=== PATIENT | male | born 1960 | race Hispanic/Latino ===

== ENCOUNTER 2017-06-23 06:50 | Day surgery (SDC) | payer BC ==
[2017-06-15 10:49] VITALS: BMI 32.5
[2017-06-23] MEDS ORDERED: Propofol 10 mg/ml Inj (20 ML) ONE (08:02)
[2017-06-23] MEDS ORDERED: Lidocaine 2% Inj (20ml) ONE (08:02)
[2017-06-23] MEDS ORDERED: Simethicone 40 mg/0.6 ml Liquid (30 ml) ONE (08:06)
[2017-06-23] MEDS ORDERED: Sodium Chloride 0.9% 1,000 ML IV SCH (09:00)
[2017-06-23 09:38] VITALS: BP 117/72; PULSE 65; RESP 18; TEMP 97.7; O2SAT 98
== END 2017-06-23 10:20 | disposition home or self-care (01) ==
LOC: ENDO 06:50
PROVIDERS: ATTEND Internal Medicine Gastroenterology
DX: K31.7 Polyp of stomach and duodenum (principal); K29.50 Unspecified chronic gastritis without bleeding; K29.80 Duodenitis without bleeding; K64.0 First degree hemorrhoids; Z12.11 Encounter for screening for malignant neoplasm of colon; I10 Essential (primary) hypertension; F41.9 Anxiety disorder, unspecified
CPT/HCPCS: 43239; 45378; 88305; 88342; J2704; J7040 ×2